=== PATIENT | male | born 1985 | race Two or more races ===

== ENCOUNTER 2022-02-21 21:47 | Emergency (ER) | payer SELFPAY ==
[~2022-02-21] VITALS: Ht 167.6 cm; Wt 70.0 kg
[2022-02-21 23:11] LABS: Basophils # (auto) 0 10 ^3/uL (0-0.2); Basophils % (auto) 0.3 % (0.0-2.0); Eosinophils # (auto) 0.1 10 ^3/uL (0-0.8); Eosinophils % (auto) 0.5 % (0.0-7.0); Hematocrit 43.7 % (41.0-53.0); Hemoglobin 14.7 g/dL (13.5-17.5); Lymphocytes % (auto) 10.9 % (10.0-50.0); Mean Corpuscular Hemoglobin 32.3 pg (28.0-32.0); Mean Corpuscular Hgb Conc. 33.5 g/dL (32.0-36.0); Mean Corpuscular Volume 96.4 fL (80.0-100.0); Monocytes # (auto) 0.5 10 ^3/uL (0-1.3); Monocytes % (auto) 5.5 % (0.0-12.0); Neutrophils # (auto) 7.8 10 ^3/uL (1.6-8.6); Neutrophils % (auto) 82.8 % (37.0-80.0); Red Blood Cells 4.53 10^6/uL (4.5-5.90); Red Cell Distribution Width 13.9 % (11.8-14.3); White Blood Cell 9.4 10^3/uL (4.4-10.8)
[2022-02-21 23:29] LABS: Potassium 3.4 mmol/L (3.5-5.1)
[2022-02-21 23:37] LABS: Albumin 4.1 g/dL (3.4-5.0); BUN/Creatinine Ratio 7.8; Bilirubin, Total 0.8 mg/dL (0.2-1.0); Calcium 8.4 mg/dL (8.5-10.1); Total Protein 7.1 g/dL (6.4-8.2)
[2022-02-22] MEDS ORDERED: HYDROcodone-ACET 10/325MG TAB PO ONE (02:45)
[2022-02-22 03:10] VITALS: BP 125/77
== END 2022-02-22 03:08 | disposition home or self-care (01) ==
LOC: ER 21:47
DX: R07.89 Other chest pain (principal)
CPT/HCPCS: 36415; 71045; 80053; 84484; 85025; 93005